=== PATIENT | male | born 1970 | race African-American/Black ===

== ENCOUNTER 2018-11-02 14:38 | Emergency (ER) | payer SELFPAY ==
[~2018-11-02] VITALS: Ht 190.5 cm; Wt 90.0 kg
[2018-11-02 15:02] VITALS: BP 142/89
[2018-11-02] MEDS ORDERED: SODIUM CHLORIDE 0.9% 1,000 ML IV ONE (15:19)
[2018-11-02 15:50] LABS: CHLORIDE 105 mEq/L (98-107)
[2018-11-02 15:54] LABS: BASOPHILS % 0.7 % (0.0-2.0); EOSINOPHILS % 0.1 % (0.0-5.0); HEMATOCRIT. 41.3 % (42.0-52.0); HEMOGLOBIN. 13.9 g/dL (14.0-18.0); LYMPHOCYTES % 16.8 % (20.0-50.0); MEAN CORPUSCULAR VOLUME 97.7 fL (80.0-94.0); MEAN PLATELET VOLUME 10.2 fl (7.4-10.4); MONOCYTES % 7.4 % (2.0-8.0); PLATELET 183 x1000/uL (130-400); RED BLOOD CELL COUNT 4.23 mill/uL (4.7-6.1); RED CELL DISTRIBUTION WIDTH 14.7 % (11.6-14.6)
== END 2018-11-02 16:38 | disposition home or self-care (01) ==
LOC: ER 14:38
DX: R56.9 Unspecified convulsions (principal); I10 Essential (primary) hypertension; F10.20 Alcohol dependence, uncomplicated; Y90.0 Blood alcohol level of less than 20 mg/100 ml
CPT/HCPCS: 36415; 70450; 80053; 82962; 85025; 99284; J7030